=== PATIENT | male | born 1965 | race Two or more races ===

== ENCOUNTER 2020-06-22 08:10 | Outpatient (CLI) | payer OTHER | END 2020-06-22 08:23 | disposition home or self-care (01) | LOC: TOM 08:10 | PROVIDERS: ATTEND Internal Medicine Gastroenterology | DX: R19.5 Other fecal abnormalities (principal); J45.909 Unspecified asthma, uncomplicated; J45.901 Unspecified asthma with (acute) exacerbation ==